=== PATIENT | female | born 1970 | race Caucasian/White ===

== ENCOUNTER 2023-02-16 12:41 | Emergency (ER) | payer MEDICAID, SELFPAY ==
[2023-02-16 12:43] VITALS: BP 123/80; PULSE 78; RESP 16; TEMP 36; O2SAT 98; BMI 30.4
--- NOTE | 2023-02-16 13:04 | EDS_ITS ---
HPI History of Present Illness Chief Complaint: Upper Extremity Injury Detail of Chief Complaint: Left shoulder pain and weakness Informant: patient Narrative Narrative: Patient presents the emergency department complaint of pain in her left shoulder that started initially 5 days ago. Patient states that she woke up with that and initially thought maybe she had slept wrong. She denies any trauma or injury. Pain is gotten progressively worse and certain motions cause her severe pain if she brings the arm up by using her opposite arm she cannot keep it up there because of pain and she thinks maybe some weakness. Patient went to [facility] and was referred to the emergency department. She denies fever or recent illness. PFSH PFSH Home Medications hydrocodone-acetaminophen 5-325mg 5mg-325mg 1 tab PO Q4H PRN PRN Pain 2 days #10 TABLETS 02/16/23 [Rx Last Taken Unknown] Allergy/AdvReac Type Severity Reaction Status Date / Time No Known Allergies Allergy Verified 02/16/23 12:42 Social History Smoking Status: Never smoker ROS ROS ED Review of Systems ROS Unobtainable: other Constitutional Constitutional ED: Reports lethargy; Denies chills, fever(s), sweats or weight loss Eyes Eyes: Denies blurry vision, change in vision or diplopia ENT ENT ED: Denies rhinorrhea or sore throat Cardiovascular Cardiovascular: Denies chest pain, orthopnea or racing heartbeat Respiratory/Chest Respiratory/Chest: Denies cough, dyspnea, dyspnea on exertion, orthopnea or sputum Gastrointestinal Gastrointestinal: Denies abdominal pain, diarrhea, nausea or vomiting Genitourinary Genitourinary ED: Denies dysuria, hematuria or urinary frequency Musculoskeletal Musculoskeletal: Reports other Details: Left shoulder pain ; Denies arthralgias, back pain, myalgias or neck pain Integumentary Denies abscess, Abrasions or rash Neurologic Neurologic: Denies headache(s) or weakness Psychiatric Psychiatric: Denies anxiety, depression or suicidal thoughts Endocrine Endocrinology: Denies polydipsia, polyphagia or polyuria Hematologic/Lymphatic Hematologic/Lymphatic: Denies easy bleeding, easy bruising or lymphadenopathy Allergic/Immunologic Allergic/Immunologic ED: Denies mouth swelling, tongue swelling or urticaria EXAM Physical Exam Const Vital Signs: 02/16/23 12:43 Temperature 96.8 F L Temperature Source Temporal Pulse Rate 78 Respiratory Rate 16 Blood Pressure 123/80 H Blood Pressure Mean 94 Pulse Ox 98 Oxygen Delivery Method Room Air Positive well nourished and well developed General Appearance ED: well developed and NAD HEENT Reports TM's clear and moist mucous membranes normocephalic and atraumatic; Negative for trauma or tenderness Tympanic Membrane ED: Yes TM's clear Eyes PERRL and EOMs intact bilaterally General Eye ED: Negative for pale conjunctiva or scleral icterus Neck no lymphadenopathy, supple and no JVD General: Negative for tenderness Chest Wall inspection of chest normal and palpation of chest normal Chest: Negative for tenderness Resp normal respiratory effort and clear to auscultation bilaterally Effort and Inspection: Negative for respiratory distress or pain with movement Auscultation: Negative for rhonchi, wheezes or diminished lung sounds Cardio regular rate, regular rhythm, S1 normal heart sound, S2 normal heart sound and no murmurs Peripheral Pulses: pulses 2+ throughout GI normal to inspection, nondistended, normoactive bowel sounds, soft to palpation, non-tender, non-distended and no masses Back/Spine no CVA tenderness and no thoracic nor lumbar tenderness Extremity Extremity Narrative: Left arm-patient does have tenderness palpation over the bicep tendon at the glenohumeral joint that seems to reproduce her pain. She has limited range of motion in abduction and flexion secondary to pain. She is neurovascular intact distally. There is no erythema or warmth over the shoulder joint. No ecchymosis or bruising noted. General Extremety ED: Negative for edema General Extremity: Negative for edema Neuro oriented x3, CN's II-XII intact bilaterally, no sensory deficits noted and gait normal Sensorium / Orientation: awake, alert, oriented to person, oriented to place and oriented to time Motor Exam: strength 5/5 throughout and strength abnormal Psych mental status grossly normal Skin no rashes or lesions noted and no wounds MDM MDM MDM Narrative Medical decision making narrative: Patient with atraumatic left shoulder pain. There is calcification in the supraspinatus tendon. I suspect symptoms likely secondary to a tendinitis. Patient did not want a sling. I will write her prescription for few [place]. She will take ibuprofen as needed as well as anti-inflammatory. Will refer to local orthopedics on-call however she is from the [facility] and she may try to get an orthopod through her PCP. Radiography Diagnostic Testin view x-rays of the left shoulder obtained interpreted by myself as calcifications and tendon at glenohumeral joint without evidence of fracture or dislocation. Radiology was in agreement and felt there was calcific tendinitis of the supraspinatus tendon. Discharge Plan Triage Chief Complaint: Upper Extremity Injury ED Provider: Adrien Shah Dx/Rx/DC Orders Clinical Impression: Acute pain of left shoulder, Left shoulder tendinitis Instructions: ED Tendonitis, ED Shoulder Pain, Uncertain Cause Prescriptions: New hydrocodone-acetaminophen [hydrocodone-acetaminophen] 5-325 mg tablet 1 tab PO Q4H PRN PRN (Reason: Pain) 2 Days Qty: 10 0RF Primary Care Provider: Issa Beach MD Referrals: Issa Beach MD [Other] Fredi Kwon MD [Med Staff - Active Staff] - 3-5 Days Disposition Disposition: Home, Self Care
--- NOTE | 2023-02-16 13:11 | RAD_ITS ---
STUDY: X-RAY - LEFT SHOULDER REASON FOR EXAM: Female, 52 years old. Pain TECHNIQUE: 2 view(s) of the shoulder. COMPARISON: None. FINDINGS: Normal glenohumeral articulation. Normal acromioclavicular joint. Normal acromion. Normal humeral head and visualized proximal humerus. There is periarticular soft tissue calcification consistent with a calcific tendinitis. There is no demonstrated fracture. Normal visualized pulmonary apex. RAD/Shoulder min 2 Views IMPRESSION: Calcific tendinopathy of the supraspinatus. No fracture. Electronically Signed: Ahsan Morgan MD at 14:34 EDT ,
== END 2023-02-16 15:06 | disposition home or self-care (01) ==
PROVIDERS: Emergency Provider Emergency Medicine; Visit Provider Emergency Medicine
DX: M75.82 Other shoulder lesions, left shoulder (principal); M25.512 Pain in left shoulder
CPT/HCPCS: 73030; 99282